=== PATIENT | female | born 1935 | race Caucasian/White ===

== ENCOUNTER → 2021-12-09 08:00 | Outpatient (REF) | payer OTHER, SELFPAY ==
[2021-12-10 12:23] LABS: Urine Albumin 1+ (Neg - Trace); Urine Bilirubin Negative (Negative); Urine Character Very Cloudy (Clear); Urine Color Yellow; Urine Glucose Negative (Negative); Urine Ketone Negative (Negative); Urine Leukocyte 2+ (Negative); Urine Nitrite Negative (Negative); Urine Occult Blood 2+ (Negative); Urine Urobilinogen Negative (Neg - 1+)
[2021-12-10 12:58] LABS: Urine Bacteria Many (Negative); Urine White Cell >100 /HPF (0-5)
== END ==
LOC: OLABP 08:00
PROVIDERS: ATTENDING PHYSICIAN Student in an Organized Health Care Education/Training Program
DX: E78.00 Pure hypercholesterolemia, unspecified (principal); I10 Essential (primary) hypertension; J45.20 Mild intermittent asthma, uncomplicated; M62.81 Muscle weakness (generalized); Z85.3 Personal history of malignant neoplasm of breast
CPT/HCPCS: 81001; 81003; 81015; 87077; 87086; 87186